=== PATIENT | female | born 1995 | race African-American/Black ===

== ENCOUNTER 2019-03-29 16:38 | Emergency (ER) | payer SELFPAY ==
[2019-03-29] MEDS ORDERED: Ketorolac Tromethamine 60 MG/2 ML VIAL ONE (17:04)
[2019-03-29] MEDS ORDERED: HYDROcodone/Acetaminophen 10/325 mg Tablet ONE (17:04)
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
== END 2019-03-29 18:00 | disposition home or self-care (01) ==
LOC: SCSER 16:38
DX: S63.8X1A Sprain of other part of right wrist and hand, initial encounter (principal); S80.11XA Contusion of right lower leg, initial encounter; V43.4 Person boarding or alighting a car injured in collision with car, pick-up truck or van
CPT/HCPCS: 96372; J1885

== ENCOUNTER 2019-10-05 20:46 | Emergency (ER) | payer SELFPAY ==
[2019-10-05] MEDS ORDERED: Ibuprofen 800 MG TAB ONE (21:01)
== END 2019-10-05 21:40 | disposition home or self-care (01) ==
LOC: SCSER 20:46
DX: J06.9 Acute upper respiratory infection, unspecified (principal); J45.909 Unspecified asthma, uncomplicated
CPT/HCPCS: 87804; 99283